=== PATIENT | male | born 1940 | race Caucasian/White ===

== ENCOUNTER 2019-04-20 13:54 | Emergency (ER) | payer MEDICARE, OTHER ==
[~2019-04-20] VITALS: Ht 188 cm; Wt 83.9 kg
[~2019-04-20 13:54] MED LIST: ATORVASTATIN CA40 MG PO; FLOMAX0.4 MG PO; HYDROCODONE-AP1 EAC6 PO; LISINOPRIL20 MG PO; OXYBUTYNIN 5 MG5 M2 PO
[2019-04-20 15:18] VITALS: BP 135/83
== END 2019-04-20 15:19 | disposition home or self-care (01) ==
LOC: M.ERS 13:54
DX: R10.10 Upper abdominal pain, unspecified (principal); I10 Essential (primary) hypertension; Z98.890 Other specified postprocedural states